=== PATIENT | female | born 1965 | race Caucasian/White ===

== ENCOUNTER 2016-09-14 13:43 | Day surgery (SDC) | payer OTHER ==
[~2016-09-14] VITALS: Ht 162.6 cm; Wt 70.4 kg
[2016-09-14] VITALS (13 sets, daily range): BP systolic 90–117; BP diastolic 40–65; PULSE 61–78; RESP 13–17; O2SAT 98–100
[~2016-09-14 13:43] MED LIST: CeFAZolin 2 Gm/50 mL D5W IV Premix IV ONE; Dexamethasone 4 mg/mL Inj IVPUSH PRN; EPHEDrine Sulfate 50 mg/mL Inj IVPUSH PRN; ESTR2TAB2 PO; FERR325T39 PO; HYDROmorphone 1 mg/mL Inj IVPUSH PRN; LEVO100T45 PO; Lactated Ringer's 1,000 ML IV SCH; Lactated Ringer's 500 ML IV PRN; MetoCLOpramide 5 mg/mL 2 mL Inj IVPUSH PRN; Ondansetron 2 mg/mL 2 mL Inj IVPUSH PRN; Phenylephrine 10,000 mCg/mL Inj IVPUSH PRN; fentaNYL-PF 50 mCg/mL 2 mL Inj IVPUSH PRN
[2016-09-14] MEDS ORDERED: Dexamethasone 4 mg/mL Inj ONE (13:44)
[2016-09-14] MEDS ORDERED: HYDROmorphone 2 mg/mL Inj ONE (13:44)
[2016-09-14] MEDS ORDERED: Propofol 10,000 mCg/mL 20 mL Inj ONE (13:44)
[2016-09-14] MEDS ORDERED: Ondansetron 2 mg/mL 2 mL Inj ONE (13:44)
[2016-09-14] MEDS ORDERED: MetoCLOpramide 5 mg/mL 2 mL Inj ONE (13:44)
[2016-09-14] MEDS: Lactated Ringer's 1,000 ML IV SCH ×2 (14:13→17:02)
[2016-09-14] MEDS ORDERED: CeFAZolin 2 Gm/50 mL D5W Duplex Bag IV ONE (14:30)
[2016-09-14] MEDS ORDERED: HYDROcodone-APAP 7.5-325 mg Tablet PO PRN (16:45)
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
[2016-09-14] MEDS ORDERED: Lidocaine 1%-Epi 1:100,000 20 mL Inj NERVEBLOCK ONE (17:28)
[2016-09-14] MEDS ORDERED: Lactated Ringer's 1,000 ML IV SCH (17:36)
[2016-09-14] MEDS ORDERED: Lactated Ringer's 500 ML IV PRN (17:36)
[2016-09-14] MEDS ORDERED: Phenylephrine 10,000 mCg/mL Inj IVPUSH PRN (17:40)
[2016-09-14] MEDS ORDERED: Ondansetron 2 mg/mL 2 mL Inj IVPUSH PRN (17:40)
[2016-09-14] MEDS ORDERED: MetoCLOpramide 5 mg/mL 2 mL Inj IVPUSH PRN (17:40)
[2016-09-14] MEDS ORDERED: EPHEDrine Sulfate 50 mg/mL Inj IVPUSH PRN (17:40)
[2016-09-14] MEDS ORDERED: HYDROmorphone 1 mg/mL Inj IVPUSH PRN (17:40)
[2016-09-14] MEDS ORDERED: Dexamethasone 4 mg/mL Inj IVPUSH PRN (17:40)
--- NOTE | 2016-09-14 18:19 | PCM.ANEP1 ---
Post Anesthesia PACU Phase 1 Assessment Date of Service: Sep 14, 2016 Vital Signs Vital Signs Date Time Temp Pulse Resp B/P Pulse Ox O2 Delivery O2 Flow Rate FiO2 09/14/16 18:10 76 13 100/60 99 Room Air 09/14/16 18:05 78 16 92/65 100 Room Air 09/14/16 18:00 77 16 96/62 100 Room Air 09/14/16 17:55 36.2 70 16 104/65 100 Simple Mask 8 09/14/16 14:22 36.3 61 16 117/45 98 Room Air Anesthetic Administered: GA Level of Alertness: Awake, talking [id number]'s with Equal Strength: Yes Pain: No Pain Scale Score: 0 Nausea or Vomiting: No CV Function & Hydration Stable: Yes Airway Device: none in pacu Oxygen Delivery: Simple Mask Lungs: Clear to Auscultation, Normal Air Movement PACU Phase 2 Assessment Complications: No Follow up Care: No Patient Instructions Provided: Yes Comments 09/14/16 18:10 76 13 100/60 99 Room Air Kp Becker MD Sep 14, 2016 18:19
[2016-09-14] MEDS: fentaNYL-PF 50 mCg/mL 2 mL Inj IVPUSH PRN ×2 (18:20→18:35)
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
--- NOTE | 2016-09-18 14:30 | PATH ---
SURGICAL PATHOLOGY Attending Physician:Judah Callejas MD CASE STATUS: Signed Out PATIENT NAME: DIAZ DIAZ PID: [id number] : 1965 DATE COLLECTED:09/14/2016 00:00 SPECIMEN: 1: Bursa 2: Skin, biopsy CLINICAL HISTORY: LEFT ELBOW BONY EDEMA AND PAIN 1). LEFT OLECRANON BURSA OUT 17:35 TIF 17:37 2). LEFT OLECRANON, OUT 17:36 TIF 17:38 FINAL DIAGNOSIS: 1.LEFT OLECRANON BURSA TISSUE: SOFT TISSUE CONSISTENT WITH BURSA WITH CHRONIC INFLAMMATION AND FIBROSIS AND SMALL APPARENT TRAUMATIC NEUROMA. 2.TISSUE DESIGNATED LEFT OLECRANON: SMALL BONY FRAGMENTS OF APPARENTLY NECROTIC BONE WITH SOFT TISSUE AND CHRONIC INFLAMMATORY CELLS. ICD10 M70.32 GROSS DESCRIPTION: 1. Received in formalin, labeled with the patient's name and "olecranon bursa" are two fragments of sifuentes-bowden spongy tissue ranging in size from 1.0 x 0.5 x 0.5 cm to 2.0 x 1.0 x 0.5 cm .The fragments are divided and totally submitted in cassette 1A. 2. Received in formalin, labeled with the patient's name and "olecranon" are multiple fragments of bowden spongy yellow tissue measuring 1.0 x 0.5 x 0.5 cm in aggregate. All fragments are totally submitted in cassette 2A. ([id number]) MICRO DESCRIPTION: See diagnosis. ICD-9 CODES: CPT CODES: 1: 76082 2: 73506 Electronically Signed Out Azael Galaviz MD [facility] [address], [place] [address] Technical component performed at [facility], [facility] [address], [place], [address]
== END 2016-09-14 23:59 | disposition home or self-care (01) ==
LOC: SAS 13:43
PROVIDERS: ATTEND Orthopaedic Surgery
DX: M70.32 Other bursitis of elbow, left elbow (principal); D75.89 Other specified diseases of blood and blood-forming organs; L90.5 Scar conditions and fibrosis of skin; M25.522 Pain in left elbow; E03.9 Hypothyroidism, unspecified; D64.9 Anemia, unspecified; S51.022S Laceration with foreign body of left elbow, sequela; V88 Nontraffic accident of specified type but victim's mode of transport unknown; Y92.9 Unspecified place or not applicable; Y99.8 Other external cause status; Z87.891 Personal history of nicotine dependence; Z90.710 Acquired absence of both cervix and uterus; Z79.890 Hormone replacement therapy
CPT/HCPCS: 20240; 24105; 87070; 87075; 87205; 88304; 88305; J0690; J1100; J1170; J2250; J2405; J2765; J3010; J7120